=== PATIENT | male | born 1995 | race African-American/Black ===

== ENCOUNTER 2020-11-22 09:08 | Emergency (ER) | payer OTHER ==
[~2020-11-22] VITALS: Ht 167.6 cm; Wt 54.4 kg
[~2020-11-22 09:08] MED LIST: [UNRECOGNIZED DRUG - OTHER] TP
[2020-11-22 09:17] VITALS: BP 130/65
[2020-11-22] MEDS ORDERED: KEFLEX500 M1 PO (10:07)
== END 2020-11-22 10:16 | disposition home or self-care (01) ==
LOC: ER 09:08
DX: S01.531A Puncture wound without foreign body of lip, initial encounter (principal); Z79.899 Other long term (current) drug therapy; W22.8XXA Striking against or struck by other objects, initial encounter; Y93.89 Activity, other specified; Y92.89 Other specified places as the place of occurrence of the external cause; Y99.8 Other external cause status

== ENCOUNTER 2021-06-29 13:46 | Emergency (ER) | payer OTHER ==
[~2021-06-29] VITALS: Ht 167.6 cm; Wt 56.7 kg
[~2021-06-29 13:46] MED LIST changes: +KEFLEX500 M1 PO
[2021-06-29 13:54] VITALS: BP 123/85
[2021-06-29] MEDS ORDERED: HYDROCORTISONE15 GM TOP (14:09)
[2021-06-29] MEDS ORDERED: VISTARIL50 MG PO (14:09)
== END 2021-06-29 14:42 | disposition home or self-care (01) ==
LOC: ER 13:46
DX: R21 Rash and other nonspecific skin eruption (principal)

== ENCOUNTER 2021-07-04 04:31 | Emergency (ER) | payer OTHER ==
[~2021-07-04] VITALS: Ht 167.6 cm; Wt 56.7 kg
[~2021-07-04 04:31] MED LIST changes: +HYDROCORTISONE15 GM TOP; +VISTARIL50 MG PO
[2021-07-04] MEDS ORDERED: BENADRYL ALLERG25 MG PO (04:37)
[2021-07-04 05:46] LABS: EOSINOPHILS 2.7 % (0.0-3.0); HEMATOCRIT 45.1 % (42.0-52.0); LYMPHOCYTES 51.5 % (24.0-44.0); MCHC 33.3 g/dL (28.0-37.0); MCV 95.9 fL (80.0-100.0); MONOCYTES 7.5 % (1.0-8.0); PLATELET COUNT 191 thou/uL (150-400); POLYS 37.3 % (36.0-66.0); WBC 8.1 thou/uL (4.0-11.0)
[2021-07-04 05:52] LABS: CALCIUM 8.8 mg/dL (8.5-10.1); CREATININE 1.1 mg/dL (0.7-1.3); POTASSIUM 4.1 mmol/L (3.5-5.1)
[2021-07-04 05:59] LABS: TOTAL BILIRUBIN 0.3 mg/dL (0.2-1.0); TOTAL PROTEIN 7.1 g/dL (6.4-8.2)
[2021-07-04] MEDS ORDERED: TRIAMCINOLONE A80 G2 TOP (05:59)
[2021-07-04 06:26] VITALS: BP 122/65
[2021-07-05 22:06] LABS: SYPHILIS AB Non Reactive (Non Reactive)
== END 2021-07-04 06:28 | disposition home or self-care (01) ==
LOC: ER 04:31
PROVIDERS: Emergency Medicine
DX: L42 Pityriasis rosea (principal); Z79.891 Long term (current) use of opiate analgesic; Z79.899 Other long term (current) drug therapy